=== PATIENT | male | born 1960 | race Caucasian/White ===

== ENCOUNTER 2016-11-08 08:33 | Outpatient (CLI) | payer OTHER | END 2016-11-08 08:34 | disposition home or self-care (01) | DX: Z00.01 Encounter for general adult medical examination with abnormal findings (principal); D70.8 Other neutropenia; L60.8 Other nail disorders ==

== ENCOUNTER 2018-08-13 10:37 | Outpatient (CLI) | payer OTHER ==
--- NOTE | 2018-08-13 12:59 | XRAY Report ---
Reason: INVERSION INJURY Procedure Date: 08/13/2018 Accession Number: [id number] / [id number] Procedure: XR - Tib/Fib LT CPT Code: FULL RESULT: EXAM: LEFT ANKLE RADIOGRAPHY AND LEFT TIBIA AND FIBULA RADIOGRAPHY EXAM DATE: 08/13/2018 11:20 AM. CLINICAL HISTORY: Inversion injury. COMPARISON: None.. TECHNIQUE: 3 views of the left ankle and 2 views of the left tibia/fibula. FINDINGS: Bones: There is a distal fibular fracture at the level of the ankle mortise. There is no tibial fracture. Joints: Normal. No effusion. No subluxations. The ankle mortise is widened but otherwise aligned. Soft Tissues: Soft tissue swelling is seen around the ankle. IMPRESSION: Distal fibular fracture as described. RADIA CRITICAL RESULT: The findings were discussed with Dr. Dos Santos on 08/13/2018 at 11:10 AM.
--- NOTE | 2018-08-13 13:00 | XRAY Report ---
Reason: INVERSION LT ANKLE Procedure Date: 08/13/2018 Accession Number: [id number] / [id number] Procedure: XR - Ankle 3 View LT CPT Code: FULL RESULT: EXAM: LEFT ANKLE RADIOGRAPHY AND LEFT TIBIA AND FIBULA RADIOGRAPHY EXAM DATE: 08/13/2018 11:20 AM. CLINICAL HISTORY: Inversion injury. COMPARISON: None.. TECHNIQUE: 3 views of the left ankle and 2 views of the left tibia/fibula. FINDINGS: Bones: There is a distal fibular fracture at the level of the ankle mortise. There is no tibial fracture. Joints: Normal. No effusion. No subluxations. The ankle mortise is widened but otherwise aligned. Soft Tissues: Soft tissue swelling is seen around the ankle. IMPRESSION: Distal fibular fracture as described. RADIA CRITICAL RESULT: The findings were discussed with Dr. Dos Santos on 08/13/2018 at 11:10 AM.
== END 2018-08-13 10:38 | disposition home or self-care (01) ==
LOC: DI 10:37
PROVIDERS: ATTEND Family Medicine
DX: S82.832A Other fracture of upper and lower end of left fibula, initial encounter for closed fracture (principal)

== ENCOUNTER 2022-06-29 13:57 | Outpatient (CLI) | payer OTHER ==
[2022-06-29 14:50] VITALS: BP 130/84
--- NOTE | 2022-06-29 14:50 | SLEEP CARE CONSULTATION ---
Information from patient questionnaire entered by Jacquie Harden. I have reviewed and concur with the information entered by Jacquie Harden. This document represents the service I personally performed and the decisions made by me, Mindy Krueger ARNP. History of Present Illness Service Date and Time: 06/29/2022 1357 Reason for Visit: New patient, sleep apnea on CPAP therapy Chief Complaint: reports: Other (UPDATE SUPPLES ) Date of Onset: 30+YRS Usual bedtime: 930PM Time it takes to fall asleep: 5-10MIN Snores at night: Yes Observed to quit breathing while asleep: Yes Sleeps alone due to snoring: Yes Number of times waking at night: 1-2 Reasons for waking at night: reports: Bathroom, Other (UNKNOWN REASONS ) Toss, Turn, or Twitch while sleeping: No Recalls having dreams: No Usually gets out of bed at: 530AM Feels refreshed in the morning: Yes (YES DURING SUMMER NO DURING WINTER ) Morning headache: Yes (VARIES ON RESOLVING) Sleepy or fatigued during the day: No Ever fallen asleep while driving: No Takes day naps: Yes Dreams during day naps: No Prior sleep studies: Yes ([facility] 1998) Additional HPI information: AMY SAGE was previously diagnosed to have unknown, AHI unknown, sleep apnea- hypopnea syndrome and comes in today to establish care for CPAP therapy. - Parasomnia Symptoms Ever been unable to move upon waking from sleep: No Walks in sleep: No Talks in sleep: No Ever acted out dreams in sleep: Yes Ever felt weak in the knees when startled or emotional: No Bothered by creepy, crawly, restless sensations in legs: No Problems with memory or concentration: No CPAP Compliance Data - Data Reviewed with Patient Average duration of nightly device use: 6 hours 49 minutes Compliance rate %: 83.4 (12/12/21-06/28/22; 173/199 days) Current pressure setting (cmH2O): 10 Compliance data discussion: He has a [employer] [place] CPAP machine that he got about 10-12 years ago. He is using a nasal pillows mask, Antonio?, that he has been using the same mask cushion for about 1-2 yrs. He has not gotten any supplies for about 2 years. His machine is making a louder noise for about the last year that will clear sometimes when he turns machine off and back on. Subjective Patient concerns: reports: mask leak noise, dry mouth, nose, throat (occasionally if water gets low). denies: aerophagia, mask discomfort, air blowing in eyes, condensation in mask/hose, nasal congestion, epistaxis Observed to snore while using device: No Current pressure setting perceived as: comfortable On therapy, patient: reports: sleeping better, awakening more refreshed, being more awake and alert during the day, more rested overall. 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 Patient is and lives in [place]. Have you smoked in the past 12 months: No Alcohol use: Yes Alcohol amount and frequency: 1GLASS 2 X MONTH Caffeine use: Yes Caffeine amount and frequency: 1 CUP COFFEE DAILY Family History Family history of sleep disordered breathing: Yes Family Hx Sleep Apnea: Father: Snoring, Sleep apnea - Treated Allergies and Home Medications Known drug allergies: No Drug allergies reviewed: Yes (NKDA) Home medication list reviewed: Yes (no daily medications) Review of Systems Cardiovascular: denies: high blood pressure Gastrointestinal: denies: heartburn Neurological: denies: headaches Psychiatric: reports: anxiety Ear/Nose/Throat: reports: nasal congestion Endocrine: reports: too hot or cold Physical Exam Vital signs obtained and entered by: JACQUIE Glover MA Blood Pressure: 130/84 (LEFT ARM) Cuff size: regular Heart Rate: 102 O2 Saturation: 97 Height: 5 ft 8 in Weight: 169 lb 12.8 oz Body Mass Index: 25.8 BMI Classification: Overweight Neck circumference: 15.25 Impression and Plan 1. Obstructive Sleep Apnea-Hypopnea Syndrome, unknown, with good treatment compliance and unknown apnea control. On CPAP therapy, the patient has better sleep quality and is more rested overall. Patient thinks he has a copy of his sleep study that he can obtain at home and either fax or bring over to the office. Once I have this, I can set him up with a new CPAP machine and supplies with a DME supplier in the local area. If patient is unable to locate his sleep study I will order a new sleep study to verify diagnosis and severity. Patient's apnea severity and rationale for treatment to reduce apnea, improve sleep quality and reduce cardiovascular and cerebrovascular events was reviewed. I also reviewed the benefit of consistent device use of CPAP for cerebrovascular disease, anxiety and attention deficit. * Continue CPAP pressure at 10 cmH2O * Patient to bring in previous sleep study * Update machine * Update supplies * Notify me if snoring with mask or feeling that the pressure is too much or too little * Attempt to lose weight * Call this office if any problems using CPAP * Return for follow up one month after obtaining new device, or sooner if concerns arise Counseling Topics: Weight loss health impact Visit Type: In Office Time Spent with Patient (minutes): 33 Provider Statement: I spent 100% of the Face to Face Visit with the patient with greater than 50% spent counseling the patient and coordination of care.
== END 2022-06-29 13:58 | disposition home or self-care (01) ==
LOC: SC 13:57
PROVIDERS: ATTEND Nurse Practitioner Family
DX: G47.33 Obstructive sleep apnea (adult) (pediatric) (principal); E66.3 Overweight; Z68.25 Body mass index [BMI] 25.0-25.9, adult
CPT/HCPCS: 99203; 99212

== ENCOUNTER 2023-07-21 09:24 | Outpatient (CLI) | payer OTHER ==
--- NOTE | 2023-07-21 09:51 | Sleep Patient Instructions ---
Sleep Center Visit Summary - Patient Visit Information Reason for Visit: Annual Visit - Patient Instructions Additional Instructions: You will continue with CPAP therapy with pressure set at 10 cmH2O. A supply prescription will be updated with your DME. We encourage you to continue to try to lose weight. Please follow up with the sleep care office in 1 year. - Clinic Information Contact: [facility] [address] [place] [address] [email or web address] T: [phone]
--- NOTE | 2023-07-21 09:55 | SLEEP CARE CONSULTATION ---
Information from patient questionnaire entered by Jacquie Harden. I have reviewed and concur with the information entered by Jacquie Harden. This document represents the service I personally performed and the decisions made by , Mindy Krueger ARNP. History of Present Illness Service Date and Time: 07/21/2023 09 Previous diagnosis: Mild, Obstructive Sleep Apnea-Hypopnea Syndrome AHI: 13.3 (in 2005) Reason for follow up: annual (LAST SEEN 06/2022) Equipment type: CPAP (RESMED Airsense 11, s/u 11/2022) Equipment obtained from: [employer] (getting supplies) Mask style: Full face Backup mask available: Yes Last cushion change: few weeks ago Prior sleep studies: Yes ([facility] 1998) HPI additional information: AMY SAGE was diagnosed to have mild, AHI 13.3, obstructive sleep apnea- hypopnea syndrome and returned today for CPAP therapy annual follow-up. Sleep Study - Results Prior sleep studies: Yes ([facility] 1998) CPAP Compliance Data - Data Reviewed with Patient Average duration of nightly device use: 6 HRS 35 MINS Compliance rate %: 95 (176/180 days used) Current pressure setting (cmH2O): 10 Average residual AHI: 0.9 Central apnea: 0.4 Obstructive apnea: 0.2 Average large leak: 6.3 L/min Subjective Patient concerns: reports: mask discomfort (improved with change to full face mask), dry mouth, nose, throat (occasional). denies: aerophagia, air blowing in eyes, mask leak noise, condensation in mask/hose, nasal congestion, epistaxis Observed to snore while using device: No Current pressure setting perceived as: comfortable On therapy, patient: reports: sleeping better, awakening more refreshed, being more awake and alert during the day, more rested overall. denies: drowsiness while driving Initial [place] Sleepiness Scale score: 7 (06/22/2022) Current [place] Sleepiness Scale score: 2 (132/80) Allergies and Home Medications Known drug allergies: No Drug allergies reviewed: Yes Home medication list reviewed: Yes (no changes) Allergy and home medication list: Allergies No Known Drug Allergies Allergy (Verified 07/20/23 15:32) Review of Systems Review of systems same as previous: Yes (NO CHANGE) Physical Exam Vital signs obtained and entered by: JACQUIE C, MA Blood Pressure: 132/80 (LEFT ARM) Cuff size: regular Heart Rate: 58 O2 Saturation: 97 Height: 5 ft 8 in Weight: 166 lb 6.4 oz Body Mass Index: 25.2 BMI Classification: Overweight Impression and Plan 1. Obstructive Sleep Apnea-Hypopnea Syndrome, mild, with fair treatment compliance and good apnea control. On CPAP therapy, the patient has better sleep quality and is more rested overall. Patient has significant improvement of their sleep apnea and is satisfied with current CPAP therapy. Patient states his was complaining of the mask leak noises with his nasal cushion. He had a friend give him some fullface masks that have memory foam on them and he states his really likes them because the noise has reduced. He states that comfort level has improved with using this mask. He gets occasional dry mouth and I encouraged him to adjust his humidifier as needed to reduce oral dryness. He voiced understanding. Patient denies problems with nasal congestion, epistaxis, skin irritation or aerophagia. Patient's apnea severity and rationale for treatment to reduce apnea, improve sleep quality and reduce cardiovascular and cerebrovascular events was reviewed. I also reviewed the benefit of consistent device use of CPAP for cerebrovascular disease, anxiety, and attention deficit. * Continue CPAP pressure at 10 cmH2O * Update supply prescription * Notify me if snoring with mask or feeling that the pressure is too much or too little * Attempt to lose weight * Call this office if any problems using CPAP * Return for follow up in 1 year, or sooner if concerns arise Counseling Topics: Spare mask Prescriptions: Device supplies Follow up with Sleep Care in: 1 year Visit Type: In Office Time Spent with Patient (minutes): 20 Provider Statement: I spent 100% of the Face to Face Visit with the patient with greater than 50% spent counseling the patient and coordination of care.
[2023-07-21 10:04] VITALS: BP 132/80; O2SAT 97
== END 2023-07-21 09:25 | disposition home or self-care (01) ==
LOC: SC 09:24
PROVIDERS: ATTEND Nurse Practitioner Family
DX: G47.33 Obstructive sleep apnea (adult) (pediatric) (principal); E66.3 Overweight; Z68.25 Body mass index [BMI] 25.0-25.9, adult
CPT/HCPCS: 99212; 99213

== ENCOUNTER 2023-08-14 13:26 | Emergency (ER) | payer OTHER ==
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
[2023-08-14 14:11] LABS: BASOPHILS # (AUTO) 0.1 10^3/uL (0.0-0.1); BASOPHILS % (AUTO) 0.9 %; EOSINOPHILS # (AUTO) 0.1 10^3/uL (0.0-0.7); EOSINOPHILS % (AUTO) 1.9 %; HCT - HEMATOCRIT 44.5 % (42.0-52.0); HGB - HEMOGLOBIN 14.6 g/dL (14.0-18.0); LYMPHOCYTES % (AUTO) 37.7 %; MEAN CORPUSCULAR HEMOGLOBIN 29.6 pg (27.0-31.0); MEAN CORPUSCULAR HGB CONC 32.8 g/dL (32.0-36.0); MEAN CORPUSCULAR VOLUME 90.3 fL (80.0-94.0); MEAN PLATELET VOLUME 8.8 fL (7.4-11.4); MONOCYTES # (AUTO) 0.3 10^3/uL (0.0-1.0); MONOCYTES % (AUTO) 6.4 %; NEUTROPHILS # (AUTO) 2.8 10^3/uL (1.5-6.6); NEUTROPHILS % (AUTO) 52.9 %; PLT - PLATELET COUNT 285 10^3/uL (130-450); RED BLOOD COUNT 4.93 10^6/uL (4.70-6.10); RED CELL DISTRIBUTION WIDTH 12.6 % (12.0-15.0); WHITE BLOOD COUNT 5.3 x10^3/uL (4.8-10.8)
[2023-08-14 14:23] LABS: ALBUMIN 4.2 g/dL (3.2-5.5); ALBUMIN/GLOBULIN RATIO 1.8 (1.0-2.2); ALKALINE PHOSPHATASE 66 IU/L (42-121); ALT ALANINE AMINOTRANSFERASE 17 IU/L (10-60); AST ASPARTATE AMINOTRANSFERASE 18 IU/L (10-42); BILIRUBIN,TOTAL 0.4 mg/dL (0.2-1.0); BUN - BLOOD UREA NITROGEN 17 mg/dL (6-20); CALCIUM 8.9 mg/dL (8.5-10.3); CARBON DIOXIDE - CO2 29 mmol/L (21-32); CHLORIDE 104 mmol/L (101-111); ETOH - ETHANOL < 10.0 mg/dL; GFR - MDRD 75 (>89); GLUCOSE 127 mg/dL (74-104); LIPASE 17 U/L (11-82); POTASSIUM 4.2 mmol/L (3.5-4.5); SODIUM 138 mmol/L (135-145); TOTAL PROTEIN 6.6 g/dL (6.4-8.9)
[2023-08-14 14:29] LABS: TROPONIN I HIGH SENSITIVITY 2.6 ng/L (2.3-19.7)
[2023-08-14 14:35] VITALS: O2SAT 100
[2023-08-14 15:24] LABS: BILIRUBIN,URINE NEGATIVE (NEGATIVE); GLUCOSE, URINE (UA) NEGATIVE (NEGATIVE); KETONES,URINE (UA) NEGATIVE (NEGATIVE); LEUKOCYTE ESTERASE, URINE NEGATIVE (NEGATIVE); NITRITE,URINE NEGATIVE (NEGATIVE); OCCULT BLOOD,URINE NEGATIVE (NEGATIVE); PH,URINE 5.5 PH (5.0-7.5); PROTEIN,URINE NEGATIVE (NEGATIVE); UROBILINOGEN,URINE 0.2 (NORMAL) E.U./dL (NORMAL)
[2023-08-14 15:25] LABS: CLARITY,URINE CLEAR (CLEAR)
[2023-08-14 15:38] LABS: AMPHETAMINE SCREEN,URINE NEGATIVE (NEGATIVE); BARBITURATE SCREEN,UR NEGATIVE (NEGATIVE); BENZODIAZEPINES SCREEN, URINE NEGATIVE (NEGATIVE); BUPRENORPHINE SCREEN, URINE NEGATIVE (NEGATIVE); COCAINE SCREEN URINE NEGATIVE (NEGATIVE); METHADONE SCREEN, URINE NEGATIVE (NEGATIVE); METHAMPHETAMINES SCREEN, URINE NEGATIVE (NEGATIVE); OPIATE SCREEN, URINE NEGATIVE (NEGATIVE); OXYCODONE SCREEN, URINE NEGATIVE (NEGATIVE); THC CANNABINOID SCREEN, URINE NEGATIVE (NEGATIVE); TRICYCLIC ANTIDEPRESSANT,URINE NEGATIVE (NEGATIVE)
--- NOTE | 2023-08-14 16:43 | XRAY Report ---
PROCEDURE: Chest 1V INDICATIONS: chest pain TECHNIQUE: One view of the chest was acquired. COMPARISON: Correlation is made with the accompanying head CT. FINDINGS: Surgical changes and devices: None. Lungs and pleura: No pleural effusions or pneumothorax. Lungs are clear. Mediastinum: The aorta is prominent and tortuous. The cardiac contours are within normal limits. Bones and chest wall: No suspicious bony lesions. Overlying soft tissues appear unremarkable. IMPRESSION: No acute cardiopulmonary process. Reviewed by: Smith Huang MD on 08/14/2023 3:42 PM [facility] Approved by: Smith Huang MD on 08/14/2023 3:42 PM [facility] Station ID: [id number]
--- NOTE | 2023-08-14 16:43 | CT Report ---
PROCEDURE: Head WO INDICATIONS: syncope, head injury TECHNIQUE: Noncontrast 4.5 mm thick angled axial sections acquired from the foramen magnum to the vertex. For r adiation dose reduction, the following was used: automated exposure control, adjustment of mA and/or kV according to patient size. COMPARISON: Correlation is made with the accompanying chest radiograph. FINDINGS: Image quality: Excellent. CSF spaces: Basal cisterns are patent. A mild arachnoid cyst can be seen along the posterior aspect of the posterior fossa. Ventricles are normal in size and shape. Brain: No midline shift. No intracranial masses or hemorrhage. Acuna-white matter interface is norm al. Skull and face: Calvarium and visualized facial bones are intact, without suspicious lesions. Sinuses: Layering hyperdense material can be seen within the left maxillary sinus. The paranasal sinu ses otherwise appear relatively clear. No displaced sinus wall fracture can be seen. No significant a bnormal fluid can be seen within the mastoid air cells. IMPRESSION: No intracranial hemorrhage is seen. No significant intracranial abnormality is seen. Apparent blood fluid level can be seen within the left maxillary sinus. On these images, no sinus wal l fracture can be seen. - If there is strong clinical concern for a facial bone fracture, please consider a dedicated maxillo facial CT for further evaluation. Reviewed by: Smith Huang MD on 08/14/2023 3:41 PM [facility] Approved by: Smith Huang MD on 08/14/2023 3:41 PM [facility] Station ID: [id number]
[2023-08-14 16:47] VITALS: BP 135/82
== END 2023-08-14 17:15 | disposition home or self-care (01) ==
LOC: ED 13:26
DX: R55 Syncope and collapse (principal); S00.01XA Abrasion of scalp, initial encounter; S00.03XA Contusion of scalp, initial encounter; S06.0X1A Concussion with loss of consciousness of 30 minutes or less, initial encounter; X58.XXXA Exposure to other specified factors, initial encounter
CPT/HCPCS: 36415; 80053; 80306; 80320; 81001; 81003; 83690; 84484; 85025; 87086; 93005; 99283; 99284